=== PATIENT | female | born 1975 | race Caucasian/White ===

== ENCOUNTER 2024-10-17 10:56 | Emergency (ER) | payer SELFPAY ==
[~2024-10-17] VITALS: Ht 172.7 cm; Wt 63.0 kg
[2024-10-17 10:57] VITALS: TEMP 97.9
[2024-10-17 11:37] LABS: BASOPHILS % (AUTO) 0.6 % (0-1); EOSINOPHILS # (AUTO) 0.2 X10'3 (0-0.9); HEMATOCRIT 37.4 % (35.0-45.0); HEMOGLOBIN 12.5 g/dl (12.0-16.0); LYMPHOCYTES # (AUTO) 1.8 X10'3 (1.1-4.8); LYMPHOCYTES % (AUTO) 25.2 % (21-51); MEAN CORPUSCULAR HEMOGLOBIN 30.4 PG (27.0-31.0); MEAN CORPUSCULAR HGB CONC 33.6 g/dL (33.0-36.5); MEAN CORPUSCULAR VOLUME 90.5 FL (78-98); MEAN PLATELET VOLUME 7.4 FL (7.4-10.4); MONOCYTES # (AUTO) 0.5 X10'3 (0-0.9); MONOCYTES % (AUTO) 6.7 % (2-12); NEUTROPHILS # (AUTO) 4.6 X10'3 (1.8-7.7); NEUTROPHILS % (AUTO) 64.5 % (42-75); PLATELET COUNT 325 X10'3 (140-440); RED BLOOD COUNT 4.13 X10'6 (4.20-5.60); RED CELL DISTRIBUTION WIDTH 13.4 % (11.5-14.5); WHITE BLOOD COUNT 7.1 X10'3 (4.5-11.0)
[2024-10-17] MEDS: ondansetron/PF 4mg/2ml inj IV ONE (11:40)
[2024-10-17] MEDS: LORazepam 2 mg/ml vial IV ONE (11:40)
[2024-10-17] MEDS: morphine 4 MG/ML inj SYRINge IV ONE (11:40)
[2024-10-17] MEDS: aspirin 81mg, enteric-coated 1 TAB TABLET.DR PO ONE (11:52)
[2024-10-17 11:55] LABS: ALANINE AMINOTRANSFERASE 29 U/L (12-78); ALBUMIN 3.8 G/DL (3.4-5.0); ALBUMIN/GLOBULIN RATIO 1.2 (1.1-1.5); ALKALINE PHOSPHATASE 71 IU/L (46-116); ANION GAP 9 (8-16); ASPARTATE AMINO TRANSFERASE 19 U/L (10-37); BILIRUBIN,TOTAL 0.4 MG/DL (0.1-1.0); BLOOD UREA NITROGEN 11 MG/DL (7-18); BUN/CREATININE RATIO 22.9 (10.0-20.0); CALCIUM 8.8 MG/DL (8.5-10.1); CHLORIDE 106 MMOL/L (99-107); CREATININE 0.48 MG/DL (0.40-0.90); GLUCOSE 89 MG/DL (70-104); POTASSIUM 3.4 MMOL/L (3.5-5.1); SODIUM 141 MMOL/L (135-145); TOTAL CARBON DIOXIDE 26.1 MMOL/L (24-32); eCRCL 143 ML/MIN; eGFR > 90 ML/MIN
[2024-10-17 12:02] LABS: PRO BRAIN NATRIURETIC PEPTIDE 101 PG/ML (0-125)
[2024-10-17 15:42] VITALS: BP 132/89; PULSE 67; O2SAT 100
[2024-10-17] MEDS ORDERED: HYDR-3965 PO (17:10)
[2024-10-17] MEDS ORDERED: CYCL-394 PO (17:10)
[2024-10-17 17:28] VITALS: RESP 16
[2024-10-17] MEDS: potassium Cl 20 mEq SR tablet PO STA (17:28)
[2024-10-17] MEDS: HYDROcodone/acetaminophen 5mg/325mg tablet PO ONE (17:28)
== END 2024-10-17 17:45 | disposition home or self-care (01) ==
LOC: ER 10:56
DX: R07.89 Other chest pain (principal); Z88.0 Allergy status to penicillin; Z88.6 Allergy status to analgesic agent; Z79.899 Other long term (current) drug therapy
CPT/HCPCS: 36415; 71045; 80053; 83880; 84484; 85025; 85379; 93005; 99285